=== PATIENT | male | born 1985 | race African-American/Black ===

== ENCOUNTER 2018-01-31 20:54 | Emergency (ER) | payer OTHER ==
[~2018-01-31] VITALS: Ht 152.4 cm; Wt 74.8 kg
[2018-01-31 21:15] VITALS: BP 137/91
[2018-01-31] MEDS ORDERED: methylPREDNISolone SOD SUCC 125 MG/2 ML VL IM ONE (23:15)
== END 2018-02-01 00:39 | disposition home or self-care (01) ==
LOC: ER 20:54
DX: T24.512A Corrosion of first degree of left thigh, initial encounter (principal); T24.511A Corrosion of first degree of right thigh, initial encounter; T65.891A Toxic effect of other specified substances, accidental (unintentional), initial encounter; T32.0 Corrosions involving less than 10% of body surface; T79.8XXA Other early complications of trauma, initial encounter; Y93.89 Activity, other specified; Y99.8 Other external cause status; Y92.89 Other specified places as the place of occurrence of the external cause
CPT/HCPCS: 96372; 99283; J2930